=== PATIENT | female | born 1975 | race African-American/Black ===

== ENCOUNTER 2022-07-08 14:02 | Emergency (ER) | payer MEDICAID ==
[~2022-07-08] VITALS: Ht 175.3 cm; Wt 75.0 kg
[2022-07-08 14:06] VITALS: BP 134/84
[2022-07-08 15:09] LABS: BASOPHILS % 0.5 % (0.0-2.0); EOSINOPHILS % 0.6 % (0.0-5.0); HEMATOCRIT. 31.8 % (36.0-48.0); HEMOGLOBIN. 10.4 g/dL (12.0-16.0); LYMPHOCYTES % 32.3 % (20.0-50.0); MEAN CORPUSCULAR HEMOGLOBIN 27.9 pg (28.0-32.0); MEAN CORPUSCULAR VOLUME 85.2 fL (81.0-99.0); MEAN PLATELET VOLUME 7.3 fl (7.4-10.4); MONOCYTES % 7.6 % (2.0-8.0); PLATELET 339 x1000/uL (130-400); RED BLOOD CELL COUNT 3.74 mill/uL (4.2-5.4); RED CELL DISTRIBUTION WIDTH 16.4 % (11.6-14.6)
[2022-07-08 15:16] LABS: CHLORIDE 108 mEq/L (98-107)
[2022-07-08 15:32] LABS: HCG SCREEN NEGATIVE
== END 2022-07-08 17:30 | disposition home or self-care (01) ==
LOC: ER 14:37
DX: R00.2 Palpitations (principal); F41.9 Anxiety disorder, unspecified
CPT/HCPCS: 36415; 71045; 80048; 84703; 85025; 93005; 99285

== ENCOUNTER 2023-12-26 18:02 | Emergency (ER) | payer MEDICAID ==
[~2023-12-26] VITALS: Ht 180.3 cm; Wt 73.0 kg
[2023-12-26 18:04] VITALS: O2SAT 99
[2023-12-26 18:57] VITALS: TEMP 98.6
[2023-12-26 19:15] LABS: BASOPHILS % 0.8 % (0.0-2.0); EOSINOPHILS % 0.5 % (0.0-5.0); HEMATOCRIT. 32.7 % (36.0-48.0); LYMPHOCYTES % 31.4 % (20.0-50.0); MEAN CORPUSCULAR HEMOGLOBIN 30.4 pg (28.0-32.0); MEAN CORPUSCULAR HGB CONC 33.5 g/dL (31.0-37.0); MEAN CORPUSCULAR VOLUME 90.8 fL (81.0-99.0); MEAN PLATELET VOLUME 6.9 fl (7.4-10.4); NEUTROPHILS % 60.3 % (40.0-76.0); PLATELET 338 x1000/uL (130-400); RED BLOOD CELL COUNT 3.61 mill/uL (4.2-5.4); RED CELL DISTRIBUTION WIDTH 13.9 % (11.6-14.6); WHITE BLOOD COUNT 5.3 x1000/uL (4.5-11.0)
[2023-12-26] MEDS: HYDROXYZINE 25MG TABLET PO NR (19:59)
[2023-12-26] MEDS: CLONIDINE 0.1MG TABLET PO NR (19:59)
[2023-12-26] MEDS ORDERED: IBUP-2029 MT (20:26)
[2023-12-26] MEDS: IBUPROFEN 600MG TABLET PO ONE (21:31)
[2023-12-26 21:38] VITALS: BP 123/74; PULSE 66; RESP 18
== END 2023-12-26 21:37 | disposition home or self-care (01) ==
LOC: ER 18:02
DX: R51.9 Headache, unspecified (principal); R42 Dizziness and giddiness; F41.9 Anxiety disorder, unspecified; I10 Essential (primary) hypertension
CPT/HCPCS: 36415; 85025; 99283

== ENCOUNTER 2024-06-05 20:10 | Emergency (ER) | payer MEDICAID ==
[~2024-06-05] VITALS: Ht 180.3 cm; Wt 78.0 kg
[~2024-06-05 20:10] MED LIST: IBUP-2029 MT
[2024-06-05 20:25] VITALS: O2SAT 100
[2024-06-05 20:37] VITALS: BP 130/85; PULSE 80; RESP 16; TEMP 97.9; O2SAT 99
[2024-06-06] MEDS ORDERED: METR-167 MT (01:19)
[2024-06-06] MEDS ORDERED: CYCL10TA21 MT (01:19)
== END 2024-06-06 01:51 | disposition home or self-care (01) ==
LOC: ER 20:10
DX: N76.0 Acute vaginitis (principal); G89.29 Other chronic pain; M25.512 Pain in left shoulder; I10 Essential (primary) hypertension; G43.909 Migraine, unspecified, not intractable, without status migrainosus; Z98.890 Other specified postprocedural states
CPT/HCPCS: 93971; 99284